=== PATIENT | male | born 1970 | race Caucasian/White ===

== ENCOUNTER 2017-08-23 01:27 | Inpatient (IN) ==
[2017-08-23] MEDS ORDERED: Ondansetron 4 MG/2 ML VIAL IVP PRN (05:34)
[2017-08-23] MEDS ORDERED: Acetaminophen 325 MG TABLET PO PRN (05:34)
[2017-08-23] MEDS ORDERED: Naloxone 0.4 MG/ML INJ IVP PRN (05:34)
[2017-08-23] MEDS ORDERED: diazePAM 10 MG/2 ML SYRINGE IVP PRN (05:34)
[2017-08-23] MEDS ORDERED: *HR* OxyCODONE Immed Rel 5 MG TABLET PO PRN (05:34)
--- NOTE | 2017-08-23 05:51 | Internal Med History&Physical ---
Date of Encounter: 08/23/17 Time of Encounter: 05:30 Assessment and Plan (1) Hyponatremia Current visit: No Status: Acute !. Will check labs this morning and follow closely. 2. Based upon old labs and chronic alcohol abuse, will allow patient to auto correct slowly. Will trend serum sodium levels and consult nephrology if necessary. 3. Will place in seizure precautions and monitor for signs of withdrawal. (2) Alcohol intoxication Current visit: Yes Status: Acute 1. Patient remains intoxicated; he also received some Ativan in ER prior to transfer. 2. Will allow him to " sleep it off". 3. Will order CIWA protocol and monitor for withdrawal. 4. Patient received 2 liters IVF bolus at [facility]. Will check lasb before adding more fluids. Qualifiers: Complication of substance-induced condition: uncomplicated Qualified Code(s ): F10.920 - Alcohol use, unspecified with intoxication, uncomplicated (3) DVT prophylaxis Current visit: Yes Status: Acute 1. EPCD's. Internal Medicine - H&P: HPI Chief complaint: transfer from [place] Admitted From: Hospital to Hospital Transfer Plans for Post Hospital Care: Home History of present illness: Mr. Mondragon is a 47 year old male who presents in transfer from [facility] emergency department. He came to the ER earlier this morning with complaints of dehydration, alcohol intoxication, and concerns for possible withdrawal. He was found to have significant hyponatremia. Additionally, he had a blood alcohol level of 111. I received a call from the ER attending requesting transfer to [place]. Patient presents now to [facility] and, upon my assessment of the patient, he is somnolent but easily arousable. He appears intoxicated and is unable to provide any significant history whatsoever. He is slurring his speech and is rather sleepy. He did receive a couple doses of Ativan at [facility] prior to transfer. I am unable to obtain any further history from patient. He will not quantify his alcohol use or abuse. He denies any chest pain, shortness of breath, vomiting, diarrhea, fevers, chills, or night sweats. He is alert and oriented to self only. He is confused as to why he is here and is unable to elaborate verbally whether he is in [place] her [place]. No further history can be obtained from patient. Past Med Surg Social Fam HX - Past Medical History Source: old records reviewed, other (ER records and phone conversation earlier) Medical history: hypertension, other (alcohol abuse) Psychiatric history: other - Past Surgical History Surgical History: other - Social History Smoking Status: Current every day smoker Packs per day: 2 Smokeless Tobacco Status: Yes Alcohol use: heavy, recent Drug use: none - Family History Mother Hx Family Cardiac Disorders: Yes (htn) Hx Family Respiratory Disorders: No Hx Family Cancer: No Hx Family GI Disorders: No Hx Family Endocrine Disorder: No Hx Family Neuromuscular Disorders: No Hx Family Neurologic Disorders: No Hx Family HEENT Disorders: No Hx Family Autoimmune Disorders: No Father Hx Family Cardiac Disorders: Yes (enlarged heart) Hx Family Respiratory Disorders: No Hx Family Cancer: No Hx Family GI Disorders: No Hx Family Endocrine Disorder: No Hx Family Neuromuscular Disorders: No Hx Family Neurologic Disorders: No Hx Family HEENT Disorders: No Hx Family Autoimmune Disorders: No Internal Medicine - H&P: Meds Amlodipine Besylate 10 mg PO DAILY 03/02/16 [History] Lisinopril [Zestril] 5 mg PO DAILY 03/02/16 [History] 3 Allergy/AdvReac Type Severity Reaction Status Date / Time No Known Allergies Allergy Unverified 08/22/17 23:18 ROS unobtainable: due to mental status (patient intoxicated and unable to provide history) - Constitutional Vitals: Temp Pulse Resp BP Pulse Ox 97.7 F 107 14 161/102 98 08/23/17 04:10 08/23/17 04:27 08/23/17 04:10 08/23/17 04:10 08/23/17 04:10 General appearance: Present: A&O X 1, no acute distress. Absent: answers questions appropriately - Head Head exam: Present: atraumatic, normal inspection - Expanded Head Exam Head exam expanded: Absent: abrasion, contusion, general tenderness - Eye Eye exam: Present: EOMI, normal appearance, PERRL (2-3mm and symmetrical) Pupils: Present: normal accommodation - ENT ENT exam: Present: mucous membranes dry, normal exam, normal oropharynx - Neck Neck exam general surgery: Present: full ROM, supple. Absent: lymphadenopathy, tenderness, nuchal rigidity - Expanded Neck Exam Neck exam: Present: carotid bruit - Respiratory Respiratory exam: Present: prolonged expiratory phase, wheezes (rare, scattered wheezes). Absent: CTAB, rales, rhonchi - Cardiovascular Cardiovascular exam: Present: RRR, +S1, +S2 - GI/Abdominal GI/Abdominal exam: Present: normal bowel sounds, soft. Absent: guarding, mass, rebound, tenderness - Extremities Exam Extremities exam: Present: full ROM, warm, radial pulses palpable and symmetrical. Absent: calf tenderness, tenderness - Back Exam Back exam: Absent: CVA tenderness (L), CVA tenderness (R) - Neurological Exam Neurological exam: Present: alert, altered, no focal deficits, strengths equal and symetr throughout. Absent: oriented X3 Additional comments: Patient confused and disoriented - Psychiatric Psychiatric exam: Present: agitated, flat affect - Skin Skin exam: Present: dry, warm. Absent: rash Internal Med - H&P Results - Labs Labs: I reviewed the labs from [place] they include the following: WBC 12.5 Hemoglobin 14.5 Hematocrit 37.9 Platelets 301 Sodium 117 Potassium 4.1 Chloride 80 BUN 5 Creatinine 0. 78
[2017-08-23 06:30] LABS: Prothrombin Time 10.6 Seconds (9.4-12.1)
[2017-08-23] MEDS ORDERED: Pantoprazole 40 MG VIAL IVP SCH (06:30)
[2017-08-23 06:32] LABS: Activated Partial Thrombo Time 28.7 Seconds (26.0-36.0)
[2017-08-23 06:47] LABS: Alanine Aminotransferase 18 Units/L (0-55); Albumin 3.9 g/dL (3.5-5.0); Albumin/Globulin Ratio 1.1 (1.1-2.2); Alkaline Phosphatase 83 Units/L (38-126); Aspartate Amino Transferase 26 Units/L (5-34); BUN/Creatinine Ratio 7 (6-26); Bilirubin,Total 0.7 mg/dL (0.2-1.2); Carbon Dioxide 22 mEq/L (19-29); Chloride 85 mEq/L (98-109); Globulin 3.4 g/dL (2.4-3.5); Glucose 89 mg/dL (70-99); Magnesium 1.5 mg/dL (1.6-2.6); Osmolality,Calculated 241 (280-300); Potassium 4.1 mEq/L (3.5-4.5); Total Protein 7.3 g/dL (6.0-8.3); eGFR For African Americans > 60 (> 60); eGFR For Non-African Americans > 60 (> 60)
[2017-08-23 06:49] LABS: Blood Urea Nitrogen 5 mg/dL (8-26); Sodium 117 mEq/L (136-145)
[2017-08-23 07:33] LABS: Basophils % 0.2 %; Eosinophils % 0.3 %; Hemoglobin 13.2 g/dL (12.9-16.9); Immature Granulocytes % 0.4 % (0-4); Lymphocytes # 1.9 K/mcL (0.6-4.6); Lymphocytes % 15.8 %; Mean Corpuscular Hemoglobin 32.4 pg (28.0-33.3); Mean Corpuscular Volume 85.8 fL (83.0-100.0); Mean Platelet Volume 8.7 fL (9.4-12.4); Monocytes # 0.9 K/mcL (0.0-1.3); Monocytes % 7.7 %; Neutrophils # 9.2 K/mcL (1.6-8.9); Platelet Count 289 K/mcL (140-400); Red Blood Count 4.08 M/mcL (4.19-5.50); Segmented Neutrophils % 75.6 %
[2017-08-23 07:37] LABS: Mean Corpuscular HGB Conc 37.7 g/dL (31.6-35.5)
[2017-08-23] MEDS ORDERED: 0.9 % Sodium Chloride 500 ML IVC ONE (09:21)
[2017-08-23] MEDS ORDERED: *HR* LORazepam 2 MG/ML VIAL IVP PRN ×3 (09:23)
--- NOTE | 2017-08-23 09:29 | Internal Med Progress Note ---
Date of Encounter: 08/23/17 Time of Encounter: 09:27 - Assessment and plan (1) Alcohol withdrawal syndrome Current Visit: No Status: Acute Assessment and plan: Cont CIWA protocol on Ativan PRN Also started him on Librium scheduled Consulted SW cont banana bag counseled to quit drinking Qualifiers: Complication of substance-induced condition: uncomplicated Qualified Code(s ): F10.230 - Alcohol dependence with withdrawal, uncomplicated (2) Hyponatremia Current Visit: No Status: Acute Assessment and plan: still at 117 due to dehydration and hypovolemic started on IV fluids cont Q6hr check goal of correction 8-10meq/day (3) Alcohol intoxication Current Visit: Yes Status: Acute Qualifiers: Complication of substance-induced condition: uncomplicated Qualified Code(s ): F10.920 - Alcohol use, unspecified with intoxication, uncomplicated (4) Tobacco dependence Current Visit: Yes Status: Acute Assessment and plan: counseled to quit on nicotine patch (5) DVT prophylaxis Current Visit: Yes Status: Acute Assessment and plan: low risk early ambulation recommended - Subjective Interval history: Mr. Mondragon is a 47 year old male who presents in transfer from [facility] emergency department for alcohol intoxication and hyponatremia. Pt was seen and examined at bed side now.. He seems to be little agitated now, wanted to go home today. Denied any CP / SOB. He is A, A, O x3. Does drink alcohol on daily basis, had last alcohol y/d - Constitutional Vitals: Temp Pulse Resp BP Pulse Ox 97.7 F 92 16 97/78 98 08/23/17 08:03 08/23/17 08:03 08/23/17 08:03 08/23/17 08:03 08/23/17 08:03 General appearance: Present: A&O X 3, no acute distress, answers questions appropriately - Head Head exam: Present: atraumatic, normal inspection - Neck Neck exam general surgery: Present: supple - Respiratory Respiratory exam: Present: decreased breath sounds. Absent: rales, respiratory distress, rhonchi, wheezes - Cardiovascular Cardiovascular exam: Present: RRR, +S1, +S2. Absent: tachycardia - GI/Abdominal GI/Abdominal exam: Present: normal bowel sounds, soft, no peritoneal signs. Absent: distended, tenderness - Extremities Exam Extremities exam: Absent: calf tenderness, pedal edema, tenderness - Back Exam Back exam: Absent: CVA tenderness (L), CVA tenderness (R) - Neurological Exam Neurological exam: Present: alert, oriented X3 - Psychiatric Psychiatric exam: Present: agitated, anxious Internal Medicine: Result - Labs CBC & Chem 7: 08/23/17 06:14 08/23/17 06:14 Labs: Short CBC 08/23/17 Range/Units 06:14 WBC 12.2 H (4.3-11.1) K/mcL Hgb 13.2 (12.9-16.9) g/dL Hct 35.0 L (37.5-50.1) % Plt Count 289 (140-400) K/mcL Neutrophils # 9.2 H (1.6-8.9) K/mcL BMP 08/23/17 06:14 Sodium 117 L* Potassium 4.1 Chloride 85 L Carbon Dioxide 22 BUN 5 L Creatinine 0.73 Glucose 89 Calcium 9.0 Liver Function 08/23/17 Range/Units 06:14 Total Bilirubin 0.7 (0.2-1.2) mg/dL AST 26 (5-34) Units/L ALT 18 (0-55) Units/L Alkaline Phosphatase 83 (38-126) Units/L Albumin 3.9 (3.5-5.0) g/dL - ABG Interpretation ABG results: PT/INR, D-dimer PT 10.6 Seconds (9.4-12.1) 08/23/17 06:14 Consult Discharge Plan - Plan Referrals: Jareth Qureshi, CY [Primary Care Provider] -
[2017-08-23] MEDS: Nicotine 21 MG PATCH.TD24 TD SCH (09:41)
[2017-08-23] MEDS: 0.9 % Sodium Chloride 1,000 ML IVC SCH ×3 (09:43→21:40)
[2017-08-23] MEDS ORDERED: Thiamine (B-1) 100 MG, Folic Acid 1 MG, MVI, adult with vitamin K 10 ML in 0.9 % Sodi... IVPB SCH (18:00)
[2017-08-24 01:24] LABS: Alanine Aminotransferase 15 Units/L (0-55); Albumin 3.5 g/dL (3.5-5.0); Albumin/Globulin Ratio 1.3 (1.1-2.2); Alkaline Phosphatase 76 Units/L (38-126); Aspartate Amino Transferase 21 Units/L (5-34); BUN/Creatinine Ratio 13 (6-26); Bilirubin,Total 0.5 mg/dL (0.2-1.2); Blood Urea Nitrogen 10 mg/dL (8-26); Calcium 8.5 mg/dL (8.6-10.8); Carbon Dioxide 24 mEq/L (19-29); Chloride 100 mEq/L (98-109); Globulin 2.8 g/dL (2.4-3.5); Glucose 85 mg/dL (70-99); Magnesium 2.1 mg/dL (1.6-2.6); Osmolality,Calculated 268 (280-300); Potassium 4.5 mEq/L (3.5-4.5); Sodium 130 mEq/L (136-145); Total Protein 6.3 g/dL (6.0-8.3); eGFR For African Americans > 60 (> 60); eGFR For Non-African Americans > 60 (> 60)
[2017-08-24 02:08] LABS: Basophils % 0.3 %; Eosinophils # 0.1 K/mcL (0.0-0.6); Eosinophils % 0.8 %; Hematocrit 33.9 % (37.5-50.1); Hemoglobin 12.2 g/dL (12.9-16.9); Immature Granulocytes % 0.6 % (0-4); Lymphocytes % 30.8 %; Mean Corpuscular Hemoglobin 32.4 pg (28.0-33.3); Mean Corpuscular Volume 90.2 fL (83.0-100.0); Monocytes % 15.1 %; Neutrophils # 3.4 K/mcL (1.6-8.9); Platelet Count 280 K/mcL (140-400); Red Blood Count 3.76 M/mcL (4.19-5.50); Red Cell Distribution Width 12.7 % (11.5-14.5); Segmented Neutrophils % 52.4 %
[2017-08-24 07:01] VITALS: BP 150/99
[2017-08-24] MEDS: Nicotine 21 MG PATCH.TD24 TD SCH (08:11)
--- NOTE | 2017-08-24 09:00 | Discharge Summary ---
Date of Encounter: 08/24/17 Time of Encounter: 08:58 - Discharge Diagnosis (1) Alcohol withdrawal syndrome Priority: Primary Status: Acute Qualifiers: Complication of substance-induced condition: uncomplicated Qualified Code(s ): F10.230 - Alcohol dependence with withdrawal, uncomplicated (2) Hyponatremia Priority: Primary Status: Acute (3) Alcohol intoxication Priority: Primary Status: Acute Qualifiers: Complication of substance-induced condition: uncomplicated Qualified Code(s ): F10.920 - Alcohol use, unspecified with intoxication, uncomplicated (4) Tobacco dependence Priority: Secondary Status: Acute (5) DVT prophylaxis Priority: Secondary Status: Acute - Discharge Medications Prescriptions: Amlodipine Besylate 10 mg PO DAILY #30 tablet Chlordiazepoxide [Librium] 25 mg PO QID #20 capsule Lisinopril [Zestril] 10 mg PO DAILY #30 tablet Nicotine Patch [Nicoderm] 21 mg TD DAILY #30 patch.td24 Home Medications: Buspirone HCl [Buspar] 10 mg PO TID 08/23/17 [History] Amlodipine Besylate 10 mg PO DAILY #30 tablet 08/24/17 [Rx] Chlordiazepoxide [Librium] 25 mg PO QID #20 capsule 08/24/17 [Rx] Lisinopril [Zestril] 10 mg PO DAILY #30 tablet 08/24/17 [Rx] Nicotine Patch [Nicoderm] 21 mg TD DAILY #30 patch.td24 08/24/17 [Rx] Allergies/Adverse Reactions: 3 Allergy/AdvReac Type Severity Reaction Status Date / Time No Known Allergies Allergy Unverified 08/22/17 23:18 Procedures/tests Complete & Pending: Procedures Performed prior 72 hours Category Date Time Status ECG 12 lead ECG [ECG] AM 0600 Y 08/23/17 06:00 Ordered Date of admission: 08/23/17 06:05 Primary care physician: Jareth Qureshi CNP Consults: 08/23/17 09:23 Consult to [employer] Lead [CONS] Routine Reason for SW Consult: alcohol intoxication - Patient Status Disposition: Home, Self-Care Condition: Good Overall status at discharge: patient is back to baseline - Discharge Instructions Instructions: Hyponatremia (DC) Follow Up With: Jareth Qureshi CNP [Primary Care Provider] - 08/28/17 2:00 pm () - Diet and Activity Activity: increase activity as tolerated Diet: advance to your usual diet Hospital course: Mr. Mondragon is a 47 year old male who presents in transfer from [facility] emergency department for alcohol intoxication and hyponatremia. Pt was admittd here for severe hyponatremia and alcohol intoxication. His hyponatremia seems to be due to dehydration and hypovolemia state due to poor PO intake. he was started on IV hdyration and his Na got corrected slowly in last 48hrs. Todays is Na @ 131. For his alcohol intoxication we placed him on CIWA scale and started him Librium as scheduled. His symptoms improved, he is tolerating PO intake well. His vitals also stable today. Pt wants to go home . He is willing to quit drinking alcohol. Our SW provided him about alcohol rehab walk in clinic information. Also I gave him rx for Libirium tapering dose. - Time Spent with Patient Total time spent providing and/or coordinating discharge services: - Constitutional Vitals: Temp Pulse Resp BP Pulse Ox 97.6 F 77 18 150/99 99 08/24/17 07:00 08/24/17 07:00 08/24/17 07:00 08/24/17 07:00 08/24/17 07:00 General appearance: Present: A&O X 3, no acute distress, answers questions appropriately - Head Head exam: Present: atraumatic, normal inspection - Neck Neck exam general surgery: Present: supple - Respiratory Respiratory exam: Present: CTAB. Absent: accessory muscle use, rales, rhonchi, wheezes - Cardiovascular Cardiovascular exam: Present: RRR, +S1, +S2. Absent: diastolic murmur, gallop, rubs, systolic murmur - GI/Abdominal GI/Abdominal exam: Present: normal bowel sounds, soft, no peritoneal signs. Absent: distended, tenderness - Extremities Exam Extremities exam: Absent: calf tenderness, pedal edema, tenderness - Back Exam Back exam: Absent: CVA tenderness (L), CVA tenderness (R) - Neurological Exam Neurological exam: Present: alert, oriented X3 - Psychiatric Psychiatric exam: Present: normal affect, normal mood
== END 2017-08-24 14:00 | disposition home or self-care (01) | DRG 897 ==
LOC: 2NNU
PROVIDERS: ADMIT Pediatrics; ATTEND Family Medicine